=== PATIENT | male | born 1985 | race African-American/Black ===

== ENCOUNTER 2018-07-10 22:47 | Inpatient (IN) | payer OTHER ==
[~2018-07-10] VITALS: Ht 172.7 cm; Wt 106.6 kg
[2018-07-10 22:58] VITALS: Ht 172.7 cm; Wt 106.6 kg
--- NOTE | 2018-07-10 23:00 | NUR ---
EKG IN PROGRESS IN TRIAGE.
--- NOTE | 2018-07-10 23:11 | NUR ---
PT BIB C/O CHEST PAIN AND SOB. PT AAOX4, RESP E/U, NO DISTRESS NOTED, AMBULATORY WITH STEADY GAIT, SPEECH IS CLEAR, ANSWERS QUESTIONS APPROPRIATELY. PT'S AT BEDSIDE, MSE COMPLETED BY DR GARCIA, CALL LIGHT WITHIN REACH.
--- NOTE | 2018-07-10 23:12 | NUR ---
DR GARCIA AT BEDSIDE FOR MSE.
--- NOTE | 2018-07-10 23:18 | NUR ---
PT PLACED ON FULL CM
--- NOTE | 2018-07-10 23:27 | NUR ---
LAB AT BEDSIDE
--- NOTE | 2018-07-10 23:27 | NUR ---
PT STS "THE PAIN IS TOLERABLE FOR NOW" AND STS HE WOULD LIKE TO "HOLD OFF ON THE MED". DR GARCIA MADE AWARE
[2018-07-10 23:51] LABS: BASOPHIL % 0.3 % (0-2); PLATELET COUNT 248 x10^3mcL (130-400); RED CELL DISTRIBUTION WIDTH 13.5 % (11.5-14.5)
[2018-07-11 00:08] LABS: ALBUMIN 3.7 g/dL (3.4-5.0); ALKALINE PHOSPHATASE 75 U/L (46-116); ALT/SGPT 27 U/L (16-63); AST/SGOT 19 U/L (15-37); BILIRUBIN TOTAL 0.2 mg/dL (0.20-1.00); CALCIUM 8.8 mg/dL (8.5-10.1); CHLORIDE SERUM 102 mmol/L (98-107); CHOLESTEROL 152 mg/dL (<200); CREATININE SERUM 1.2 mg/dL (0.7-1.3); GFR1 > 60 mL/min; GLUCOSE SERUM 102 mg/dL (74-106); HDL CHOLESTEROL 44 mg/dL (40-60); PHOSPHOROUS 3.5 mg/dL (2.5-4.9); POTASSIUM SERUM 4.1 mmol/L (3.5-5.1); SODIUM SERUM 138 mmol/L (136-145); TOTAL PROTEIN, SERUM 7.3 g/dL (6.4-8.2); URIC ACID 5.7 mg/dL (3.5-7.2)
--- NOTE | 2018-07-11 00:49 | NUR ---
DR GARCIA AT BEDSIDE TO DISCUSS POC WITH PT AND .
--- NOTE | 2018-07-11 00:51 | NUR ---
EMT DENOMINATIONAL AT BEDSIDE FOR EKG
--- NOTE | 2018-07-11 01:23 | NUR ---
DR GARCIA AT BEDSIDE TO DISCUSS POC WITH PT.
--- NOTE | 2018-07-11 01:42 | NUR ---
REPORT GIVEN TO MAXWELL MICHEL TO ASSUME CARE OF PT.
[2018-07-11 02:17] VITALS: BP 149/94
[2018-07-11 02:20] LABS: T3 TOTAL 1.07 ng/mL
[2018-07-11 02:26] LABS: FREE T4 0.83 ng/dL (0.76-1.46); FREE THYROXINE INDEX 2.2 ug/dL (1.4-4.5); T4(THYROXINE) 6.4 ug/dL (4.7-13.3)
--- NOTE | 2018-07-11 02:27 | NUR ---
RECEIVED PT FROM ER VIA [facility] ACCOMPANIED WITH NURSE AND PT'S , ALERT AND ORIENTED, DENIES HEADACHE OR DIZZINESS, BREATHING EVEN AND UNLABORED, LUNG SOUNDS CLEAR, ON ROOM AIR WITH NO RESP DISTRESS NOTED, ON TELE#11 SB, C/O OF CHEST PAIN MORE LIKE PRESSURE 8/10, SL TO RFA, PULSES PALPABLE, NO EDEMA NOTED, AMBULATORY WITH STEADY GAIT, ABD ROUND AND SOFT WITH ACTIVE BS, NO BM AT THIS TIME, DENIES ABD PAIN, VOIDING FREELY, NO DISTRESS NOTED, WILL KEEP TO MONITOR.
--- NOTE | 2018-07-11 05:54 | NUR ---
PT ASLEEP BUT EASILY AROUSABLE, OFFERED NORCO FOR PAIN EARLIER BUT PT REFUSED AND STATED THAT HE IS NOT IN PAIN WHILE RESTING IN BED, ON TELE#11 SB, SL TO RFA, AT BEDSIDE, NO DISTRESS NOTED, WILL KEEP TO MONITOR.
[2018-07-11 05:57] VITALS: BP 136/72
--- NOTE | 2018-07-11 07:10 | NUR ---
BEDSIDE HANDOFF REPORT DONE WITH JOSE, ALL QUESTIONS ANSWERED AND CONCERNS ADDRESSED.
[2018-07-11 07:35] LABS: CALCIUM 8.7 mg/dL (8.5-10.1); CARBON DIOXIDE 27.4 mmol/L (21-32); CHLORIDE SERUM 103 mmol/L (98-107); CREATININE SERUM 1.1 mg/dL (0.7-1.3); GFR1 > 60 mL/min; GLUCOSE SERUM 112 mg/dL (74-106); POTASSIUM SERUM 4.1 mmol/L (3.5-5.1); SODIUM SERUM 138 mmol/L (136-145)
--- NOTE | 2018-07-11 08:37 | NUR ---
RECIEVED PATIENT AWAKE WITH THE SIGNIFICANT OTHER AT BEDSIDE. PATIENT DENIES ANY ACUTE PAIN AT THIS TIME AND STATES HE HAD CHEST PAIN BUT MINIMAL TIGHTNESS OR PAIN AT THIS TIME DID NOT REQUEST ANY PAIN MEDICATIONS. VITALS AT THIS TIME AT98.4, 63, 18, 136/72, 98%. PATIENT HAS NOTED AIC AT 6.0 AND PATIENT HAS FAMILY THAT IS DIABETIC. PATIENT AHS OTHERWISE NORMAL LABS. CHEST XRAY WAS TAMKEN AND AWAITING RESULTS AT THIS TIME. SKIN INTED AND TRACE EDEMA NOTED TO THE LOWER EXTREMITIES. PATIENT IS FULLY AMBUATORY AND HAS AN ALLERGY TO CODIENE
[2018-07-11 09:35] LABS: BASOPHIL % 0.3 % (0-2); PLATELET COUNT 226 x10^3mcL (130-400); RED CELL DISTRIBUTION WIDTH 13.6 % (11.5-14.5)
[2018-07-11 09:40] VITALS: BP 137/77
[2018-07-11 11:30] VITALS: BP 137/77
--- NOTE | 2018-07-11 11:30 | NUR ---
BLOOD SUGAR AT 1130 AT 141 AND NO COVERAGED INDICATED.
--- NOTE | 2018-07-11 13:17 | NUR ---
FAMILY AT [facility] AND CHECKED TEMPERATURE AND NO FEVER AT THIS TIME.
--- NOTE | 2018-07-11 13:19 | NUR ---
PATIENT DISCHARGE TO HOME WITH ALL BELONGINGS. IV AND TELE REMOVED PRIOR TO DISCHARGE.
== END 2018-07-11 12:20 | disposition home or self-care (01) | DRG 195 ==
LOC: ED 22:47 → DU 07-11 01:32
PROVIDERS: Emergency Medicine; ADMIT Internal Medicine
DX: R09.1 Pleurisy (principal); I10 Essential (primary) hypertension; Z68.35 Body mass index [BMI] 35.0-35.9, adult
CPT/HCPCS: 83880; 84439; J1885; Q0092